=== PATIENT | female | born 1950 | race Caucasian/White ===

== ENCOUNTER 2025-01-21 10:38 | Emergency (ER) | payer OTHER ==
[~2025-01-21] VITALS: Ht 157.5 cm; Wt 65.0 kg
[2025-01-21 10:44] VITALS: O2SAT 98
[2025-01-21 12:14] LABS: BASOPHILS % 0.3 % (0.0-2.0); EOSINOPHILS % 1.3 % (0.0-5.0); HEMATOCRIT. 37.4 % (36.0-48.0); HEMOGLOBIN. 12.0 g/dL (12.0-16.0); LYMPHOCYTES % 8.5 % (20.0-50.0); MEAN PLATELET VOLUME 8.6 fl (7.4-10.4); MONOCYTES % 5.7 % (2.0-8.0); NEUTROPHILS % 84.2 % (40.0-76.0); PLATELET 259 x1000/uL (130-400); RED BLOOD CELL COUNT 4.43 mill/uL (4.2-5.4); RED CELL DISTRIBUTION WIDTH 14.8 % (11.6-14.6)
[2025-01-21 12:28] LABS: CREATININE 0.7 mg/dL (0.6-1.0); UREA NITROGEN BLOOD 13 mg/dL (9-23)
[2025-01-21 12:29] LABS: TROPONIN I HIGH SENSITIVITY < 4 ng/L (3.0-34)
[2025-01-21] MEDS: ONDANSETRON HCL 4MG/2ML INJ IV ONE (12:37)
[2025-01-21] MEDS: SODIUM CHLORIDE 0.9% 500 ML IV ONE (12:37)
[2025-01-21] MEDS: MORPHINE SULFATE 2 MG/ML INJ (NOT FOR IM USE) IV ONE (12:37)
[2025-01-21] MEDS: OXYCODONE HCL/ACETAMINOPHEN 5/325MG TABLET PO ONE (14:51)
[2025-01-21] MEDS ORDERED: HYDR-4001 MT (16:11)
[2025-01-21] MEDS ORDERED: IBUP-1523 MT (16:11)
[2025-01-21 16:57] VITALS: BP 131/89; PULSE 81; RESP 18; TEMP 37.2; O2SAT 98
== END 2025-01-21 17:09 | disposition home or self-care (01) ==
LOC: ER 10:38 → CANBEDREQ 15:12 → ER 17:09
DX: S42.212A Unspecified displaced fracture of surgical neck of left humerus, initial encounter for closed fracture (principal); S80.01XA Contusion of right knee, initial encounter; I10 Essential (primary) hypertension; E11.9 Type 2 diabetes mellitus without complications; Z88.0 Allergy status to penicillin; X58.XXXA Exposure to other specified factors, initial encounter; Y93.89 Activity, other specified; Y92.89 Other specified places as the place of occurrence of the external cause; Y99.8 Other external cause status
CPT/HCPCS: 99285; 71045; 80048; 85025; 84484; 36415; 73030; 73562; J7040